=== PATIENT | male | born 1995 | race Caucasian/White ===

== ENCOUNTER 2017-07-14 08:00 | Outpatient (CLI) | payer OTHER ==
[2017-07-14 18:54] LABS: BASOPHILS % (AUTO) 0.4 %; EOSINOPHILS # (AUTO) 0.1 10^3/uL (0.0-0.7); EOSINOPHILS % (AUTO) 1.4 %; HGB - HEMOGLOBIN 14.7 g/dL (14.0-18.0); LYMPHOCYTES # (AUTO) 1.4 10^3/uL (1.5-3.5); LYMPHOCYTES % (AUTO) 20.6 %; MEAN CORPUSCULAR HEMOGLOBIN 28.1 pg (27.0-31.0); MEAN CORPUSCULAR HGB CONC 33.5 g/dL (32.0-36.0); MEAN PLATELET VOLUME 9.2 fL (7.4-11.4); MONOCYTES # (AUTO) 0.4 10^3/uL (0.0-1.0); MONOCYTES % (AUTO) 5.7 %; NEUTROPHILS % (AUTO) 71.9 %; PLT - PLATELET COUNT 264 10^3/uL (130-450); RED BLOOD COUNT 5.22 10^6/uL (4.70-6.10); RED CELL DISTRIBUTION WIDTH 13.4 % (12.0-15.0); WHITE BLOOD COUNT 6.9 x10^3/uL (4.8-10.8)
== END 2017-07-14 08:01 | disposition home or self-care (01) ==
LOC: LAB.WCP 08:00
PROVIDERS: ATTEND Physician Assistant
DX: K92.0 Hematemesis (principal)
CPT/HCPCS: 36415; 85025

== ENCOUNTER 2017-07-16 18:07 | Emergency (ER) | payer OTHER ==
[2017-07-16 18:55] LABS: BASOPHILS % (AUTO) 0.5 %; EOSINOPHILS # (AUTO) 0.1 10^3/uL (0.0-0.7); EOSINOPHILS % (AUTO) 2.1 %; HGB - HEMOGLOBIN 15.2 g/dL (14.0-18.0); LYMPHOCYTES # (AUTO) 1.8 10^3/uL (1.5-3.5); LYMPHOCYTES % (AUTO) 30.1 %; MEAN CORPUSCULAR HEMOGLOBIN 28.1 pg (27.0-31.0); MEAN CORPUSCULAR HGB CONC 33.5 g/dL (32.0-36.0); MEAN CORPUSCULAR VOLUME 83.8 fL (80.0-94.0); MEAN PLATELET VOLUME 8.4 fL (7.4-11.4); MONOCYTES # (AUTO) 0.4 10^3/uL (0.0-1.0); MONOCYTES % (AUTO) 6.3 %; NEUTROPHILS # (AUTO) 3.7 10^3/uL (1.5-6.6); PLT - PLATELET COUNT 266 10^3/uL (130-450); RED BLOOD COUNT 5.41 10^6/uL (4.70-6.10); RED CELL DISTRIBUTION WIDTH 13.3 % (12.0-15.0); WHITE BLOOD COUNT 6.1 x10^3/uL (4.8-10.8)
[2017-07-16 18:59] LABS: INR 1.1 (0.8-1.2); PT - PROTHROMBIN TIME 12.9 secs (9.9-12.6)
[2017-07-16 19:07] LABS: ALBUMIN 4.9 g/dL (3.2-5.5); ALBUMIN/GLOBULIN RATIO 1.7 (1.0-2.2); BILIRUBIN,TOTAL 0.6 mg/dL (0.2-1.0); CALCIUM 9.7 mg/dL (8.5-10.3); CREATININE 0.8 mg/dL (0.6-1.2); TOTAL PROTEIN 7.8 g/dL (6.7-8.2)
--- NOTE | 2017-07-16 20:17 | ED Physician Documentation ---
PD HPI GI BLEED - Stated complaint Stated Complaint: VOMITING BLOOD X1 MONTH - Chief complaint Chief Complaint: Abd Pain - History obtained from History obtained from: Patient, Family - History of Present Illness Timing - onset: How many weeks ago (2) Timing - details: Gradual onset, Intermittant Associated symptoms: Vomiting, Hematemesis. No: Maroon stool, Black/tarry stool Contributing factors: No: Sick contact, Bad food Worsened by: Eating Similar symptoms before: Work up / diagnostics Recently seen: Clinic - Additional information Additional information: Patient is a 21 year old male who is presenting to the emergency department for vomiting blood. According to patient and family over the last few weeks patient has had intermittent episodes of vomiting blood. Patient states that sometimes he vomits and there are a few tablespoons of blood, and sometimes when he vomits there is no blood. patient denies alcohol or nsaid use. Patient went to see his pmd and was started on zofran and metformin but denies a history or high blood glucose. Patient has a follow up with a surgeon but his significant other wanted him to be seen. Patient denies any chest pain, abdominal pain, dizzines, lightheadedness or other symptoms. Review of Systems Constitutional: denies: Fever, Chills Eyes: reports: Reviewed and negative Ears: reports: Reviewed and negative Nose: reports: Reviewed and negative Throat: reports: Reviewed and negative Cardiac: denies: Chest pain / pressure, Palpitations Respiratory: denies: Dyspnea, Cough GI: reports: Nausea, Vomiting, Hematemesis. denies: Abdominal Pain : reports: Reviewed and negative Skin: denies: Rash, Lesions Musculoskeletal: reports: Reviewed and negative Neurologic: denies: Generalized weakness, Focal weakness Psychiatric: reports: Reviewed and negative Immunocompromised: denies: Immunocompromised PD PAST MEDICAL HISTORY - Past Surgical History Past Surgical History: Yes HEENT: Other - Present Medications Home Medications: Ambulatory Orders Medication Instructions Recorded Confirmed Ondansetron Odt [Zofran Odt] 4 mg PO Q6H 07/16/17 Pantoprazole [Protonix] 40 mg PO DAILY #30 tablet 07/16/17 metFORMIN [Glucophage] 500 mg PO BID 07/16/17 - Allergies Allergies/Adverse Reactions: Allergies Allergy/AdvReac Type Severity Reaction Status Date / Time amoxicillin Allergy Intermediate Hives Verified 07/16/17 18:33 Sulfa (Sulfonamide Allergy Intermediate Hives Verified 07/16/17 18:33 Antibiotics) - Social History Does the pt smoke?: No Smoking Status: Never smoker Does the pt drink ETOH?: Yes ETOH Use: Beer Does the pt have substance abuse?: No - Immunizations Immunizations are current?: Yes - POLST Patient has POLST: No PD ED PE NORMAL - Vitals Vital signs reviewed: Yes - General General: Alert and oriented X 3, No acute distress - HEENT HEENT: Atraumatic, PERRL - Neck Neck: Supple, no meningeal sign - Cardiac Cardiac: RRR - Respiratory Respiratory: No respiratory distress - Abdomen Abdomen: Soft, Non tender, Non distended - Derm Derm: Normal color, Warm and dry, No rash - Extremities Extremities: No deformity - Neuro Neuro: Alert and oriented X 3, No motor deficit, Normal speech - Psych Psych: Normal mood Results - Vitals Vitals: Vital Signs - 24 hr 07/16/17 18:29 Temperature 36.9 C Heart Rate 78 Respiratory 18 Rate Blood Pressure 122/88 H O2 Saturation 99 Oxygen O2 Source Room air - Labs Labs: Laboratory Tests 07/16/17 07/16/17 07/16/17 18:47 18:47 18:47 WBC 6.1 RBC 5.41 Hgb 15.2 Hct 45.3 MCV 83.8 MCH 28.1 MCHC 33.5 RDW 13.3 Plt Count 266 MPV 8.4 Neut # 3.7 Lymph # 1.8 [place] # 0.4 Eos # 0.1 Baso # 0.0 Absolute Nucleated RBC 0.00 Nucleated RBC % 0.1 PT 12.9 H INR 1.1 Sodium 137 Potassium 3.8 Chloride 104 Carbon Dioxide 24 Anion Gap 9.0 BUN 11 Creatinine 0.8 Estimated GFR (MDRD) 123 Glucose 88 Calcium 9.7 Total Bilirubin 0.6 AST 18 ALT 17 Alkaline Phosphatase 57 Total Protein 7.8 Albumin 4.9 Globulin 2.9 Albumin/Globulin Ratio 1.7 Lipase 20 L PD MEDICAL DECISION MAKING - ED course Complexity details: reviewed old records, reviewed results, re-evaluated patient , considered differential, d/w patient, d/w family ED course: Patient was seen and examined at bedside. Labs had already been drawn. Patient was well appearing and in no distress. When patient's results came back they were reviewed and they were within normal limits. Patient was asymptomatic. Patient already had surgery follow up. patient did not need to be on metformin. Patient required no further work up and was stable for discharge with outpatient follow up. Departure - Departure Disposition: 01 Home, Self Care Clinical Impression: Peptic ulcer disease Condition: Good Instructions: ED PUD Follow-Up: Marco Lee MD [Primary Care Provider] - Prescriptions: Pantoprazole [Protonix] 40 mg PO DAILY #30 tablet Comments: Your diagnostics today were within normal limits. there are no low blood counts and no signs of diabetes. You are being started on an antacid but ultimately what you need is to see the surgeon to do the upper endoscopy to look at the lining of your stomach. You should follow up at that appointment. You may return to the emergency department at any time for new, worsening or uncontrollable symptoms.
[2017-07-16 20:45] VITALS: BP 122/66
== END 2017-07-16 20:41 | disposition home or self-care (01) ==
LOC: ED 18:07
DX: K27.4 Chronic or unspecified peptic ulcer, site unspecified, with hemorrhage (principal)
CPT/HCPCS: 36415; 80053; 83690; 85025; 85610; 99283

== ENCOUNTER 2017-07-28 09:16 | Outpatient (CLI) | payer OTHER ==
[2017-07-28] MEDS ORDERED: BARIUM SULFATE 176 GM BOTTLE PO ONE (10:06)
[2017-07-28] MEDS ORDERED: BARIUM SULFATE 135 ML BOTTLE PO ONE (10:06)
--- NOTE | 2017-07-28 11:50 | XRAY Report ---
ESOPHAGRAM: 07/28/2017 CLINICAL INDICATION: Dysphagia. FINDINGS: Esophagram was performed in the upright and prone positions. The esophagus is normal in caliber and contractility. No esophageal ulceration, mass lesion, or stricturing is identified. A small sliding hiatal hernia was intermittently visualized, which did produce gastroesophageal reflux during the course of the study. The hypopharynx appears unremarkable. A 13 mm barium pill passed freely through the esophagus and into the stomach. IMPRESSION: SMALL SLIDING HIATAL HERNIA, PRODUCING REFLUX. NO ESOPHAGEAL ULCERATION, MASS LESION, OR STRICTURING. FLUOROSCOPY TIME: 2 minutes 39 seconds; 17 spot images obtained. TD: 07/28/2017 11:48
== END 2017-07-28 09:17 | disposition home or self-care (01) ==
LOC: DI 09:16
PROVIDERS: ATTEND Surgery
DX: K44.9 Diaphragmatic hernia without obstruction or gangrene (principal); K21.9 Gastro-esophageal reflux disease without esophagitis
CPT/HCPCS: 74220; A9270

== ENCOUNTER 2017-08-06 07:12 | Day surgery (SDC) | payer OTHER ==
[~2017-08-06 07:12] MED LIST: LACTATED RINGERS 1,000 ML IV ONE
[2017-08-06] MEDS ORDERED: fentaNYL 100 MCG/2 ML VIAL IVP ONE (08:09)
[2017-08-06] MEDS ORDERED: MIDAZOLAM 2 MG/2 ML VIAL IVP ONE (08:09)
[2017-08-06] MEDS ORDERED: BENZOCAINE/TETRACAINE/BUTAMBEN SPRAY 56 GM TOP ONE (08:19)
[2017-08-06] MEDS ORDERED: LACTATED RINGERS 1,000 ML IV ONE ×2 (08:45)
[2017-08-06 09:23] VITALS: BP 100/53
== END 2017-08-06 07:13 | disposition home or self-care (01) ==
LOC: SDS 07:12
PROVIDERS: ATTEND Surgery
PROC: 0DB68ZX Excision of Stomach, Via Natural or Artificial Opening Endoscopic, Diagnostic (ICD-10-PCS; 2017-08-06)
PROC: 0DB98ZX Excision of Duodenum, Via Natural or Artificial Opening Endoscopic, Diagnostic (ICD-10-PCS; principal; 2017-08-06 08:15)
DX: R11.10 Vomiting, unspecified (principal); K44.9 Diaphragmatic hernia without obstruction or gangrene; K25.9 Gastric ulcer, unspecified as acute or chronic, without hemorrhage or perforation; F17.210 Nicotine dependence, cigarettes, uncomplicated
CPT/HCPCS: 43239; A9270; J7120; 88305

== ENCOUNTER 2018-07-13 08:00 | Outpatient (CLI) | payer OTHER | END 2018-07-13 23:59 | disposition home or self-care (01) | LOC: LAB.R 08:00 | PROVIDERS: ATTEND Family Medicine | DX: J11.1 Influenza due to unidentified influenza virus with other respiratory manifestations (principal) | CPT/HCPCS: 87275; 87276 ==

== ENCOUNTER 2023-07-17 15:27 | Outpatient (CLI) | payer OTHER ==
--- NOTE | 2023-07-17 15:56 | XRAY Report ---
PROCEDURE: Shoulder 2+V LT INDICATIONS: PAIN IN LEFT SHOULDER TECHNIQUE: 3 views of the shoulder were acquired. COMPARISON: None. FINDINGS: Bones: No fractures or dislocations. No suspicious bony lesions. Visualized ribs appear intact. Soft tissues: No suspicious soft tissue calcifications. The visualized lungs are within normal limi ts. IMPRESSION: No acute fracture or dislocation. If pain persists with conservative management, consider repeat x-ra y in 10-14 days or cross-sectional imaging. Reviewed by: Kevin Sanchez MD on 07/17/2023 3:55 PM PDT Approved by: Kevin Sanchez MD on 07/17/2023 3:55 PM PDT Station ID: [id number]
== END 2023-07-17 23:59 | disposition home or self-care (01) ==
LOC: DI.N 15:27
PROVIDERS: ATTEND Physician Assistant Medical
DX: M25.512 Pain in left shoulder (principal)

== ENCOUNTER 2024-01-06 12:45 | Emergency (ER) | payer BC, OTHER ==
[2024-01-06 14:01] VITALS: BP 135/74; O2SAT 100
--- NOTE | 2024-01-06 15:15 | ED Physician Documentation ---
History of Present Illness - Stated complaint Stated Complaint: LOWER LT BACK PX - Chief complaint Chief Complaint: Back Pain - History obtained from History obtained from: Patient - Additonal information Additional information: The pt comes to the ED with CC of L low back pain, radiating to his L buttock and L posterior thigh since lifting a heavy object out of the back of a truck. He states he felt an immediate pain and had to just rest for about 20 min before he could get back to moving. He states it hurts when he bends or twists. No loss of bowel or bladder control. No loss of sensation. No weakness. He has a h/o fall from height a few years ago, with multiple spinal fractures and prolonged recovery. He states he saw a operation specialist in the [place] area then. He states he was also told he has a lumbar herniated disc. The pt states he has chronic pain in his back, though this is much worse than his chronic pain. He was offered fusion surgery at the time of his injury, but states he did not want to have limited ROM for the rest of his life. He decided to wait and see if he got back to better function with time and healing. He does not currently have a PCP, and works mainly in the [facility] [employer]. PD PAST MEDICAL HISTORY - Past Medical History Past Medical History: Yes Cardiovascular: None Respiratory: None Neuro: None Endocrine/Autoimmune: None GI: GERD, Other : None HEENT: None Psych: None Musculoskeletal: Chronic back pain Derm: None - Past Surgical History Past Surgical History: Yes HEENT: Cataracts, Myringotomy (tubes) - Present Medications Home Medications: Ambulatory Orders Medication Instructions Recorded Confirmed Cyclobenzaprine [Flexeril] 10 mg PO TID PRN #20 tablet 01/06/24 HYDROcod/ACETAM 5/325 [Barker 5/325] 1 - 2 tablet PO Q6H PRN #20 tablet 01/06/24 predniSONE [Deltasone] 10 mg PO [id number] #42 tab 01/06/24 - Allergies Allergies/Adverse Reactions: Allergies Allergy/AdvReac Type Severity Reaction Status Date / Time amoxicillin Allergy Intermediate Hives Verified 01/06/24 13:32 Sulfa (Sulfonamide Allergy Intermediate Hives Verified 01/06/24 13:32 Antibiotics) - Social History Does the pt smoke?: No Smoking Status: Never smoker Does the pt drink ETOH?: Yes Does the pt have substance abuse?: No - Immunizations Immunizations are current?: Yes - POLST Patient has POLST: No PD ED PE NORMAL - Vitals Vital signs reviewed: Yes - General General: Alert and oriented X 3, No acute distress, Well developed/nourished, Other (Pt moves with only mild stiffness. Able to stand up, sit down, and pivot in bed without difficulty.) - HEENT HEENT: Atraumatic, EOMI, Moist mucous membranes - Neck Neck: Supple, no meningeal sign - Respiratory Respiratory: No respiratory distress - Derm Derm: Normal color, Warm and dry, No rash - Extremities Extremities: No deformity, Other (TTP around the L3-4 level, just to the L of spine, extending to L buttock. No edema or deformity. ) - Neuro Neuro: No motor deficit, No sensory deficit, Other (Alert, grossly oriented.) - Psych Psych: Normal mood, Normal affect Results - Vitals Vitals: Oxygen O2 Source Room air PD Medical Decision Making - ED course Complexity details: considered differential, d/w patient ED course: PT was treated symptomatically in the ED. We discussed that he has no evidence of emergent cause or complications of his sx, and that this is most likely a muscular strain. However, given his complicated history of injury, it is important that he establishes care with a primary, so that he can follow up for MRI, should his sx fail to resolve in the next few weeks, or should he worsen. He is already known to have a herniated disc, and he has already been offered surgery, but did not want to go that route. At this point, it is really a matter of whether he is at a point of wanting surgery or not. The pt declines x-rays here. I have prescribed symptomatic meds for at home. Departure - Departure Disposition: Home, Self Care Clinical Impression: Lumbar strain Qualifiers: Encounter type: initial encounter Qualified Code(s): S39.012A - Strain of muscle, fascia and tendon of lower back, initial encounter Condition: Stable Instructions: ED Sprain Strain Lumbar Prescriptions: predniSONE [Deltasone] 10 mg PO [id number] #42 tab Cyclobenzaprine [Flexeril] 10 mg PO TID PRN #20 tablet PRN Reason: Spasms HYDROcod/ACETAM 5/325 [Barker 5/325] 1 - 2 tablet PO Q6H PRN #20 tablet PRN Reason: Pain Comments: There is no evidence of an emergent cause or complication of your back pain today. You have been treated symptomatically with a non-narcotic medication regimen. We have also sent prescriptions for meds for you to the [facility] pharmacy in [place]. It is important that you get established with primary care and at that point, you can talk about MRI and follow-up with a operation specialist. Forms: Activity restrictions Discharge Date/Time: 01/06/24 15:47
[2024-01-06] MEDS: KETOROLAC 60 MG/2 ML VIAL IM STA (15:27)
[2024-01-06] MEDS: DEXAMETHASONE 10 MG/ML VIAL IM STA (15:28)
== END 2024-01-06 15:47 | disposition home or self-care (01) ==
LOC: ED 12:45
DX: S39.012A Strain of muscle, fascia and tendon of lower back, initial encounter (principal); X50.0XXA Overexertion from strenuous movement or load, initial encounter; Y93.89 Activity, other specified; Y92.812 Truck as the place of occurrence of the external cause; M51.26 Other intervertebral disc displacement, lumbar region
CPT/HCPCS: 96372; 99283

== ENCOUNTER 2024-01-23 07:56 | Outpatient (CLI) | payer BC ==
--- NOTE | 2024-01-25 11:49 | MRI Report ---
Lumbar Spine WO Clinical History: 28 years of age, Male, THORACIC, THORACOLUM AND LUMBOSACR INTVRT DISC DIS. Comparison: No priors available Technique: Multiplanar multisequence lumbar spine MRI without contrast was performed. Findings: Prior surgery: None. Vertebral bodies: Vertebral body heights are maintained. Alignment: Straightening of the lumbar spine. Bone marrow: Unremarkable for age. Intervertebral discs: Disc desiccation at L5-S1. The conus medullaris is normal in contour, signal intensity, and location. The tip of the conus is at L1-L2. The following axial levels are detailed below: T12-L1: Mild bilateral facet arthropathy. No central canal stenosis. No right neuroforaminal stenosis . No left neuroforaminal stenosis. L1-L2: No central canal stenosis. No right neuroforaminal stenosis. No left neuroforaminal stenosis. L2-L3: No central canal stenosis. No right neuroforaminal stenosis. No left neuroforaminal stenosis. L3-L4: No central canal stenosis. No right neuroforaminal stenosis. No left neuroforaminal stenosis. L4-L5: No central canal stenosis. No right neuroforaminal stenosis. No left neuroforaminal stenosis. L5-S1: Left foraminal disc protrusion, resulting in narrowing of the left lateral recess. No central canal stenosis. No right neuroforaminal stenosis. No left neuroforaminal stenosis. Visualized sacrum and pelvis: Visualized sacrum is intact. No abdominal aortic aneurysm. IMPRESSION: Multilevel degenerative changes of the lumbar spine, most pronounced at L5-S1, where there is left fo raminal disc protrusion, resulting in narrowing of the left lateral recess. No central canal or neuro foraminal stenosis of the lumbar spine. Reviewed by: Margareth Herr MD on 01/25/2024 11:47 AM PDT Approved by: Margareth Herr MD on 01/25/2024 11:47 AM PDT Station ID: [id number]
== END 2024-01-23 07:57 | disposition home or self-care (01) ==
LOC: DI 07:56
PROVIDERS: ATTEND Physician Assistant Medical
DX: M51.9 Unspecified thoracic, thoracolumbar and lumbosacral intervertebral disc disorder (principal); M51.36 Other intervertebral disc degeneration, lumbar region; M51.37 Other intervertebral disc degeneration, lumbosacral region; M51.27 Other intervertebral disc displacement, lumbosacral region